=== PATIENT | female | born 1980 | race Caucasian/White ===

== ENCOUNTER → 2024-07-14 11:59 | Outpatient (CLI) | payer BC, SELFPAY ==
--- NOTE | 2024-07-14 12:00 | DI.US.S_ITS ---
PROCEDURE: US PELVIC COMPLETE INDICATIONS: heavy menses, worsening over time, assess for fibroids/polyp TECHNIQUE: Real-time scanning was performed of the pelvic organs, with image documentation. Additional endovaginal scanning was necessary due to incomplete visualization of the adnexal and endometrial structures by transabdominal scanning. COMPARISON: None. FINDINGS: Uterus: Uterus is anteverted and enlarged in size at 10.0 x 8.0 x 6.3 cm. The myometrium is homogeneous. No discrete uterine fibroids. The endometrium measures 12 mm combined thickness. No gross solid appearing endometrial mass. Increased vascularity is noted within endometrium with internal cystic areas. Nabothian cysts are noted in endocervical canal. Ovaries: The right ovary measures 5.1 x 3.9 x 3.6 cm, with a calculated ovarian volume of 37.4 cc. The left ovary measures 3.2 x 2.4 x 2.0 cm, with a calculated ovarian volume of 8.0 cc. There is a cystic structure seen in right ovary with internal low level echo and peripheral vascularity measures 3.6 x 3.5 x 3.4 cm in size. Less than 12 follicles can be seen in each ovary. No adnexal masses are seen. Other: No pathologic free abdominal or pelvic fluid. IMPRESSION: 1. Enlarged uterus. No discrete uterine fibroids. Increased vascularity in the endometrium. No discrete solid appearing endometrial mass. Tiny cystic areas are noted within endometrium suggest FIBERGLASS ROVING WINDER correlation. 2. Complex cystic structure is seen in right ovary measures 3.6 x 3.5 x 3.4 cm in size and may represent complex cyst or hemorrhagic cyst. No solid appearing ovarian lesion. Normal appearing left ovary. We strive to produce accurate, complete, and clear reports of imaging services. To assist us in improving patient care, this report was composed using standard report templates and voice recognition software. Therefore, it may contain abnormal punctuation, insertions and/or omissions. Occasional wrong-word or sound-alike substitutions may occur. Though we review the report and make efforts to correct it, we do recommend that the report be read carefully in proper context to recognize any text inaccuracies. Dictated by: Carlos Calixto M.D. on 07/24/2024 at 10:31 Approved by: Carlos Calixto M.D. on 07/24/2024 at 10:56
== END ==
PROVIDERS: PCP Physician Assistant Medical; Referring Provider Nurse Practitioner Adult Health; Visit Provider Nurse Practitioner Adult Health
DX: N92.0 Excessive and frequent menstruation with regular cycle (principal); N85.2 Hypertrophy of uterus
CPT/HCPCS: 76856

== ENCOUNTER → 2024-10-05 14:23 | Outpatient (CLI) | payer BC, SELFPAY | PROVIDERS: PCP Nurse Practitioner Adult Health; Referring Provider Obstetrics & Gynecology; Visit Provider Obstetrics & Gynecology | DX: N83.209 Unspecified ovarian cyst, unspecified side (principal) | CPT/HCPCS: 36415; 86304 ==

== ENCOUNTER 2024-10-26 06:29 | Day surgery (SDC) | payer BC, SELFPAY ==
[2024-10-17 08:24] VITALS: BMI 29.0
[2024-10-26] VITALS (16 sets, daily range): BP systolic 78–123; BP diastolic 46–75; PULSE 16–73; RESP 16–20; TEMP 36.1–37.3; O2SAT 96–99; BMI 29.0
--- NOTE | 2024-10-26 | PATH_ITS ---
[facility] Accession Number: [id number] No. of containers..01 Tissue . 01 Material submitted: . uterus - UTERUS, BILATERAL FALLOPIAN TUBES AND CYST FROM RIGHT OVARY . 01 Diagnosis: UTERUS, BILATERAL FALLOPIAN TUBES, AND CYSTS FROM RIGHT OVARY, LAPAROSCOPIC SUPRACERVICAL HYSTERECTOMY, BILATERAL SALPINGECTOMY, AND RIGHT OVARY CYSTECTOMY (WEIGHT 109 GRAMS): Secretory endometrium; negative for significant atypia. Myometrium with adenomyosis. Uterine serosa with no significant histomorphologic abnormality. Longer described fallopian tube, complete cross sections; negative for significant atypia. Cato described fallopian tube, complete cross sections; negative for significant atypia. Benign hemorrhagic corpus luteum cyst (25 mm in greatest dimension). MRV 10/30/2024 1402 Local . 01 Electronically signed: . Rissa Lee MD, Pathologist NPI- [id number] . 01 Gross description: . Received in formalin with two patient identifiers and uterus, bilateral fallopian tubes, cyst from right ovary, is a fragmented uterus (109 grams, 12.5 x 11.1 x 3.5 cm in aggregate), two unoriented fimbriated fallopian tubes (6.2 x 0.5 cm and 5.4 x 0.8 cm), and a fragment of tissue possibly consistent with a portion of ovarian cyst (1 gram, 2.5 x 2.1 x 0.7 cm). No cervix is identified. . The serosa is cortez and wrinkled with no evidence of hemorrhage or adhesion identified. The presumed endometrium is cortez to brown and velvety, averages 0.1 cm thick with a possible polypoid lesion (1.2 x 1.1 x 0.9 cm) with a cortez, soft cut surface. The myometrium is cortez and trabecular with no distinct lesions identified. . Both tubes have violaceous, smooth serosa with no cysts identified, and the lumen is stellate and unremarkable. . The possible ovary cyst has a violaceous, partially smooth external surface with the scaly roughened surface inked blue, and the smooth surface inked green. Sectioning reveals a partial cystic structure filled with hemorrhagic material surrounded by a ring of yellow tissue. Oil Field Pumper sections are submitted as follows: . A1: Endometrium. A2: Possible endometrial polyp. A3: Longer fallopian tube to include one-half of bisected fimbriae and cross sections. A4: Cato fallopian tube to include one-half of bisected fimbriae and cross sections. A5-A6: Ovarian cyst. ([id number]) /MRV 10/27/2024 [facility] Local . 01 Pathologist provided ICD-10: N93.9, N83.201, N80.03, N92.0 . 01 CPT . 866302 Specimen Comment: A courtesy copy of this report has been sent to [phone] Performed at: [address] [id number] MD Fransisco Kohli MD Phone: [phone]
[2024-10-26] MEDS: LACTATED RINGERS 1,000 ML 42 ML IV ×4 (07:13→14:24)
--- NOTE | 2024-10-26 07:40 | PM.GYNHP.1 ---
History of Present Illness History of Present Illness Reason for admission: vaginal bleeding Narrative: Mireya Daniels is a 44 year old female 4 para 2 who presents for a laparoscopic supracervical hysterectomy, bilateral salpingectomy, possible right oophorectomy. This is being done due to menorrhagia, what appears to be a right ovarian endometrioma, and adenomyosis seen on MRI. [facility] Medical History (Updated 09/06/24 @ 17:36 by NASREEN Harrell) PMS (premenstrual syndrome) Ovarian cyst Abnormal uterine bleeding due to adenomyosis Menorrhagia with regular cycle Primary dysmenorrhea Surgical History (Updated 12/18/22 @ 21:23 by Lyric Ribera) Anesthesia History of section Family History (Updated 12/18/22 @ 21:23 by Lyric Ribera) Mother Hyperlipidemia Social History household members: spouse Smoking Status: Former smoker alcohol intake: never Meds Home Medications and Allergies Allergies Allergy/AdvReac Type Severity Reaction Status Date / Time No Known Drug Allergies Allergy Verified 10/26/24 07:04 Exam Vital Signs (past 8 hours): - 10/26/24 07:05 Temperature 98.1 F Pulse Rate 73 Respiratory Rate 20 Blood Pressure 114/75 Pulse Oximetry 98 Oxygen Delivery Method Room Air Oxygen Delivery Method Room Air Narrative Exam Narrative: HEENT: No thyromegaly, no anterior cervical or supraclavicular lymphadenopathy. Lungs:Clear to auscultation bilaterally, no wheezes. Cardiovascular: Regular rate and rhythm, no murmurs, rubs, or gallops. Abdomen: Well-healed Pfannenstiel scar. No hepatosplenomegaly. No masses palpable. External genitalia: Normal Vagina: Normal Cervix: Normal, parous Bimanual exam: 7 Week size anteverted uterus. Mobile.] Slight right adnexal tenderness. Extremities: No edema Assessment & Plan Assessment & Plan narrative: Assessment: 44-year-old 4 para 2 with menorrhagia, adenomyosis, and possible right ovarian endometrioma Plan: Laparoscopic supracervical hysterectomy, bilateral salpingectomy, possible right oophorectomy The risks, benefits, and alternatives to the procedure were explained to the patient. The risks including bleeding, infection, injury to the bowel, bladder, or ureters. She also understands that there is possibility of an open procedure. A full par Q was held and consent form was signed. Time-Based Coding :: [TOTAL MINUTES] spent with patient and on the chart (including review of chart, obtaining history, exam, reviewing outside data, placing orders, documenting exam and treatment plan, and counseling patient) on [DATE].
--- NOTE | 2024-10-26 07:43 | PM.PREOP ---
Pre-operative Note Interval Note History & Physical reviewed/Exam performed by Physician: Yes Changes to H&P: No H&P completed within 30 days and has changed as indicated here:: 10/26/24
[2024-10-26] MEDS: BUPIVACAINE 0.5% W/ EPI (PF) 10 ML VIAL 20 ML INJ (08:19)
[2024-10-26] MEDS: ROPIVACAINE 0.5% PF 5 MG/ML 20ML VIAL IM (09:55)
--- NOTE | 2024-10-26 10:07 | P.OP_ITS ---
Operative Date/Time/Diagnoses Date of procedure: 10/26/24 Time of procedure: 10:07 Pre-op diagnosis: Menorrhagia Adenomyosis Right ovarian cyst Post-op diagnosis: same Procedure & Clinicians Procedure: Procedures Operation Date: 10/26/24 07:45 Actual Procedure Side Surgeon p Laparoscopic Supracervical Hysterectomy with bilateral salpingectomy, REMOVAL CYST RIGHT OVARY, LYSIS OF ADHESIONS Susan Norris MD Indications: 44-year-old with menorrhagia, adenomyosis by imaging, and a right ovarian cyst. Surgeon: Susan Norris Mortgage Loan Computation Clerk: Garth Camilo Anesthesia Type: General and Local Operative Notes Findings: 9 week size anteverted uterus Bladder to uterine adhesions Omental to anterior abdominal wall adhesions 2 cm endometrioma of the right ovary Normal tubes Normal left ovary Normal appendix Normal liver and gallbladder Closure Type: primary Specimen(s): left tube, right tube, uterus and other (Right ovarian cyst) Applied: catheter (Removed at the end of the case) Estimated blood loss (mL): 50 Blood products transfused: none Procedure in detail: The patient was taken to the operating room where she was placed in the dorsal supine position. After adequate general endotracheal anesthesia was achieved, she was placed in the dorsal lithotomy position, and prepped and draped in the usual sterile fashion. A timeout was performed. A bivalve speculum was placed into the vagina and the anterior lip of the cervix grasped with a single-tooth tenaculum. The cervical os was sequentially dilated until the ZUMI uterine manipulator could pass easily into the endometrial cavity. The single-tooth tenaculum was removed from the anterior lip of the cervix, and the bivalve speculum was removed from the vagina. Attention was then turned to the abdomen where 6 mL of half percent Marcaine with epinephrine were injected in the umbilical fold. A 5 mm incision was made. The Verees needle was placed into the peritoneal cavity, and its placement confirmed by aspiration and drop test. The abdomen was insufflated with 3.4 L of carbon dioxide gas. The Verees needle was removed. A 5 mm trocar was placed without difficulty. A second incision was made on the left side midway between the pubic symphysis and umbilicus after 6 cc of 0.5% Marcaine with epinephrine were injected. A 5 mm trocar was placed under direct visualization and the balloon was inflated. There were found to be omental to anterior abdominal wall adhesions. A third incision was made 4 cm lateral to the umbilicus on the right side after 6 cc of 0.5% Marcaine with epinephrine were injected. The power seal was used to take down the omentum from the anterior abdominal wall so that the pelvis could be visualized completely. The utero-ovarian ligament on the right side was grasped with an atraumatic grasper. Using the power seal, a 2 cm endometrioma was removed from the right ovary and placed into the right lower quadrant. The right tube was grasped with an atraumatic grasper. Using the power seal, the mesosalpinx was cauterized and cut all the way down to the cornua of the uterus. The cornua of the uterus was then grasped with an atraumatic grasper. The utero-ovarian ligaments were cauterized and cut. The round ligament and broad ligament was cauterized and cut with the power seal. Hemostasis was achieved. The bladder flap was created using the power seal with cautery and cut skilled nursing across. The uterine arteries on the right side were extensively cauterized with the power seal. All of this was repeated on the left side. The remainder of the bladder flap was created using the power seal, and the bladder taken down off the lower uterine segment and cervix. Using the Linaloop, the cervix was amputated from the uterus 2 cm above the uterosacral ligaments, after the ZUMI uterine manipulator was removed from the uterus. There was a small amount of bleeding noted from the posterior edge of the cervix, and this was cauterized for hemostasis. A sponge stick was placed into the vagina. 6 mL of half percent Marcaine with epinephrine were injected above the pubic symphysis. A 12 mm trocar was placed. A large Endobag was placed through the suprapubic trocar and the uterus, tubes, and right ovarian cyst were placed into the Endobag. The trocar was removed. The edges of the bag were brought up through the skin. The fascial incision was extended with Urban scissors. The uterus was grasped with a Deng. The Neville placed into the endobag. The uterus was hand morcellated in approximately 6 pieces. The Endobag was removed from the peritoneal cavity. The abdomen was re-insufflated with carbon dioxide gas. The pelvis was copiously irrigated with warm normal saline. No bleeding was noted. 20 cc of 0.2% ropivacaine were placed over the pedicles. The instruments were removed from the abdomen. The CO2 was allowed to escape. The suprapubic incision was closed on the fascia with 0 Vicryl. Two simple interrupted sutures with 3-0 Vicryl were placed in the subcutaneous layer. All of the incisions were closed with 4-0 Monocryl in a subcuticular fashion. Steri-Strips and Allevyn dressings were placed. The moistened sponge stick was removed from the vagina. Sponge, lap, and instrument counts were correct x-2. The patient tolerated the procedure well, was taken to PACU in stable condition. A laparoscopic supracervical hysterectomy and bilateral salpingectomy Complications: none Post-operative Condition: stable Disposition: PACU Plan for aftercare: Home after recovery
[2024-10-26] MEDS: OXYCODONE IR 5 MG TABLET PO ×3 (10:46→17:56)
[2024-10-26] MEDS: HYDROMORPHONE 1 MG INJ IV (11:01)
[2024-10-26] MEDS: hydrOXYzine 50 MG/ML INJ 25 MG IM (11:01)
--- NOTE | 2024-10-26 11:17 | SUR.PHASEII ---
Patient from Phase 1 to phase 2 with plans to discharge home. Patient rates pain 7/10; no nausea; VSS; patient medicated, warm blankets given and to bedside. Patient has to drive to [place] after discharge so advised patient that we would take extra time for pain control measures prior to discharge. V/U.
[2024-10-26] MEDS: METOCLOPRAMIDE 10 MG/2 ML INJ IV (13:14)
[2024-10-26] MEDS: FAMOTIDINE 20 MG/2 ML VIAL IV (13:15)
[2024-10-26] MEDS: LACTATED RINGERS 1,000 ML 999 ML IV (14:00)
--- NOTE | 2024-10-26 14:13 | SUR.PHASEII ---
Called Dr Norris about patient's continued hypotension, even after 3000 ml of crystalloid infused. Nausea relieved; no bleeding noted. Per Dr Norris, will admit patient to inpatient unit as previously planned. Orders received for H&H. Drawn by PACU nurse and sent to lab. Patient and comfortable with admission status and in agreement.
[2024-10-26 14:19] LABS: Hematocrit 35.7 % (36-46); Hemoglobin 12.2 g/dL (12.0-16.0)
[2024-10-26] MEDS: KETOROLAC 30 MG/ML VIAL IV ×2 (15:06→21:47)
[2024-10-26] MEDS: LACTATED RINGERS 1,000 ML 100 ML IV ×2 (15:23→18:47)
[2024-10-26] MEDS: ACETAMINOPHEN 325 MG TABLET 650 MG PO (17:54)
[2024-10-26] MEDS: LACTATED RINGERS 500 ML 1000 ML IV (18:14)
[2024-10-26] MEDS: MORPHINE 2 MG/ML INJ IV (19:45)
[2024-10-26] MEDS: DOCUSATE 100 MG CAPSULE 200 MG PO (21:47)
[2024-10-27] MEDS: OXYCODONE IR 5 MG TABLET PO ×2 (01:25→07:47)
[2024-10-27] MEDS: ACETAMINOPHEN 325 MG TABLET 650 MG PO (01:25)
[2024-10-27 02:00] VITALS: BP 91/57; PULSE 66; RESP 18; TEMP 36.3; O2SAT 96
[2024-10-27] MEDS: KETOROLAC 30 MG/ML VIAL IV ×2 (02:46→08:44)
[2024-10-27 04:51] LABS: Add Manual Diff / Slide Review NO; Basophils Absolute Auto 100 /uL (0-100); Basophils Percent Auto 0.5 % (0-2); Eosinophils Absolute Auto 100 /uL (0-450); Eosinophils Percent Auto 0.8 % (2-4); Hematocrit 35.5 % (36-46); Hemoglobin 12.2 g/dL (12.0-16.0); Lymphocytes Absolute Auto 3000 /uL (1100-4500); Lymphocytes Percent Auto 26.3 % (25-40); Mean Corpuscular HGB Conc 34.4 % (30-36); Mean Corpuscular Hemoglobin 31.8 PG (26-34); Mean Corpuscular Volume 92.3 fL (80-100); Monocytes Absolute Auto 700 /uL (0-900); Monocytes Percent Auto 6.3 % (3-14); Neutrophils Absolute Auto 7500 /uL (1500-7000); Neutrophils Percent Auto 66.1 % (50-75); Platelet Count 191 X10^3/uL (150-400); Red Blood Cell Count 3.85 X10^6/uL (4.0-5.2); Red Cell Distribution Width 13.2 % (11.6-14.8); White Blood Cell Count 11.3 X10^3/uL (4.5-11.0)
[2024-10-27] MEDS: LACTATED RINGERS 1,000 ML 100 ML IV (07:48)
[2024-10-27 08:00] VITALS: BP 93/57; PULSE 70; RESP 16; TEMP 36.1; O2SAT 98
[2024-10-27] MEDS: DOCUSATE 100 MG CAPSULE 200 MG PO (08:43)
--- NOTE | 2024-10-27 09:38 | CM.DANOTE ---
DCP Assessment note Pt is a 44yo F here POD1 hysterectomy/right ovary removal from cyst with Dr. Norris PCP Marti Delatorre [facility] out of state [facility] LARRY OPERATOR reviewed EMR. per chart review, cleared for dc today. lives on [address] with spouse. Indep/active at baseline. LARRY OPERATOR met briefly with pt and spouse in room. plan to dc to family on [facility], no priority pass needed for [place]. deny other CM needs at this time P: home today with spouse support. no identified barriers to safe dc home at this time. CM team will continue to follow as needed MIGUEL Jean Discharge Planning/Care Management CM Discharge Assessment Start: 10/27/24 09:37 Freq: Status: Active Protocol: Document 10/27/24 09:37 (Rec: 10/27/24 09:38 [id number]) Discharge Planning Assessment Assigned Manager Assurance MIGUEL Suárez DPOA/Assigned Designee Name andry Hudson Contact Information [phone] Advance Directives? No History Provided By Patient,Family Member,Medical Record Prior Living Arrangements House Household Members spouse Type of transporation used prior to Drives own vehicle admit Independent with ADL's Yes Is patient alert and oriented? Yes Barriers to Discharge No Discharge Plan Home Transportation Arrangement spouse in POV Referrals Initiated None needed Review Status In Process Please Provide Date Initial DC 10/27/24 Assessment Was Performed Next Review Type Continued Stay Review Pre-Anesthesia Assessment Start: 10/17/24 08:24 Freq: Status: Active Protocol: Document 10/17/24 08:24 CAB (Rec: 10/17/24 08:29 CAB [id number]) Pre-Anesthesia Assessment PAC Comment Chart review Patient Information Reviewed Via Chart Review Primary Care Provider Lorenza Washington Seen Specialist in Last 12 Months Yes Specialist Seen Tower Technician Primary Language Swedish Physical Security Engineer Required No Height 167.64 cm Weight 81.647 kg Body Mass Index (BMI) 29.0 Anesthesia Review Requested No Biostatistics Professor No Smoking Status Former smoker Is patient on oxygen? No Hx Sleep Apnea No Currently Taking a Beta Radha No Anti-Coagulant Therapy No Has a Bleach Packer No Cardiac Testing No Hx Pacemaker/ICD No Pacemaker Rep Required? No Urinary Catheter Present No Hx Urinary Self Catheterization No Diabetes No Patient No Lactating No Marital Status Lives With spouse Patient Discharge Plan Description Return Home Comment Lives on [facility]
--- NOTE | 2024-10-27 09:55 | PC.NURSE ---
D/c instructions reviewed with pt. Discussed how opioids can increase chances of constipation, and ways to address it, including OTC stool softeners and increased fluids. IV's removed. Pt is dressed, and she confirmed that she had all of her belongings. Pt exited via w/c with MEDICAL DIR and spouse to private vehicle.
--- NOTE | 2024-10-28 04:57 | P.DS_ITS ---
History of Present Illness History of Present Illness Date Patient Seen: 10/27/24 Time Patient Seen: 08:50 Chief complaint: DESK OFFICER *OPB* Narrative: Patient is a 44-year-old postop day # 1 status post laparoscopic supracervical hysterectomy/bilateral salpingectomy/excision of right ovarian cyst/extensive lysis of omental adhesions. She remained overnight due to some low blood pressure in the PACU and some nausea. This morning she is doing well. No nausea or vomiting. She has tolerated a diet. She is ambulating independently. She has voided without the catheter. Her blood pressure was stable overnight after a small fluid bolus. She is passing flatus. Discharge Providers Provider Date of admission: October 26, 2024 Discharge Date: 10/27/24 Primary care physician: NASREEN Harrell Discharge provider: Susan Norris MD Summary Hospital Course Discharge Diagnosis: Adenomyosis Menorrhagia Right ovarian cyst Status post laparoscopic supracervical hysterectomy/bilateral salpingectomy/lysis of adhesions/excision of right ovarian cyst Hospital Course: Patient is a 44-year-old who presented on October 26, 2024 for a scheduled laparoscopic supracervical hysterectomy with bilateral salpingectomy. She underwent this procedure along with extensive lysis of adhesions and excision of a right ovarian cyst. In the PACU she had some issues with low blood pressure and nausea. She was admitted overnight for control of these. She had a small fluid bolus in the evening of postop day #0. She has tolerating a diet. She is ambulating independently. She is passing flatus. She has voided without the catheter. No nausea or vomiting. Blood pressures have been stable overnight. Status at Discharge Cognitive/behavioral status at discharge: oriented Functional status at discharge: independent ambulation Overall status at discharge: patient is progressing back to baseline Time Spent with Patient Time spent: Less than 30 minutes Exam Vital Signs (past 8 hours): Oxygen Delivery Method Room Air Oxygen Flow Rate 0 Narrative Exam Narrative: Generally: Patient sitting up in bed, no acute distress Lungs: Clear to auscultation bilaterally Cardiovascular: Regular rate and rhythm Abdomen: Soft and flat. Incisions: Clean dry and intact with Allevyn dressings Extremities: No edema, negative Homans Objective Labs 10/27/24 04:21 [facility] Medical History (Updated 09/06/24 @ 17:36 by NASREEN Harrell) PMS (premenstrual syndrome) Ovarian cyst Abnormal uterine bleeding due to adenomyosis Menorrhagia with regular cycle Primary dysmenorrhea Surgical History (Updated 12/18/22 @ 21:23 by Lyric Ribera) Anesthesia History of section Family History (Updated 12/18/22 @ 21:23 by Lyric Ribera) Mother Hyperlipidemia Social History household members: spouse Smoking Status: Former smoker alcohol intake: never Discharge Assessment & Plan Assessment and Plan Assessment: Postop day # 1 status post LSCH/bilateral salpingectomy/lysis of adhesions/excision of right ovarian cyst Patient is doing very well Pain is well controlled Plan of Treatment: Discharge to home Follow-up in 2 weeks Patient to call with fever, chills, redness or drainage around the incisions, or bleeding vaginally more than spotting to light Discharge Plan Discharge Plan Patient Disposition: Home Provider Discharge Comment: Call with fever, chills, redness or drainage around the incisions, or bleeding vaginally more than spotting to light Ibuprofen 600 mg every 6 hours as needed Tylenol 650 mg every 6 hours as needed Nursing Discharge Comment: You had your first oxycodone at 1046 a.m. and your second pain pill at 11:20. Follow your prescription as directed. Be sure to take a stool softener of your choice to prevent constipation. You had a dose of Tylenol at 0800. You can have more tylenol at 12:00 today (every four hours if needed). You can have ibuprofen/motrin/advil/aleve products as soon as 4:00 p.m today. Follow up with Dr Norris as directed. Discharge orders & Medications Discharge Orders: Discharge (Order); Ordered 10/27/24 Ordered By: Susan Norris Prescriptions: New oxycodone 5 mg tablet 5 mg PO Q4H PRN (Reason: pain) Qty: 14 0RF Follow up/Referrals: Susan Norris MD [Physician] - (Patient already has postop visits scheduled) Diet/Activity/Treatments Diet: Regular Activity: No heavy lifting for the first week Nothing in the vagina for at least 4 weeks Skin/Wound/Dressing Care Report to your healthcare provider any signs of infection, such as:: chills, fever, increased pain, unusual drainage and unusual redness Dressing: Remove outer pink dressings with attached white gauze in 3 days after morning shower May shower daily Visit Report/Discharge Packet Instructions: DI for Hysterectomy, DI for Laparoscopy, DI for Prescription Opioid Use Stand Alone Forms: Patient Portal/API, Surgery Discharge Discharge Data Primary Care Provider: Marti Delatorre Attending Provider: Susan Norris VTE Deep Vein Thrombosis/Pulmonary Embolism Present on Admission: No
== END 2024-10-27 10:03 | disposition home or self-care (01) ==
LOC: OR 06:30 → AC 06:33
PROVIDERS: PCP Nurse Practitioner Adult Health; Referring Provider Obstetrics & Gynecology; Visit Provider Obstetrics & Gynecology
PROC: 0UT94ZL Resection of Uterus, Supracervical, Percutaneous Endoscopic Approach (ICD-10-PCS; CPT 58542; principal; 2024-10-26 07:45)
DX: N93.9 Abnormal uterine and vaginal bleeding, unspecified (principal); N80.03 Adenomyosis of the uterus; N92.0 Excessive and frequent menstruation with regular cycle; N73.6 Female pelvic peritoneal adhesions (postinfective); N80.121 Deep endometriosis of right ovary; N83.11 Corpus luteum cyst of right ovary
CPT/HCPCS: 58542; 58662; 36415; 85014; 85018; 85025; J0690; J1100; J1171; J1885; J2250; J2270; J2405; J2704; J2765; J3010; J3410